=== PATIENT | female | born 1970 | race Two or more races ===

== ENCOUNTER 2021-04-09 19:22 | Emergency (ER) | payer OTHER ==
[~2021-04-09] VITALS: Ht 157.5 cm; Wt 65.8 kg
[~2021-04-09 19:22] MED LIST: MOTION SICKNESS25 M1 PO
[2021-04-09] MEDS ORDERED: KETO10TA2 PO (23:42)
== END 2021-04-10 00:03 | disposition home or self-care (01) ==
LOC: ER 19:22
DX: R10.11 Right upper quadrant pain (principal)

== ENCOUNTER 2022-08-23 14:44 | Emergency (ER) | payer OTHER ==
[~2022-08-23] VITALS: Ht 157.5 cm; Wt 68.0 kg
[~2022-08-23 14:44] MED LIST changes: +KETO10TA2 PO
== END 2022-08-23 19:55 | disposition home or self-care (01) ==
LOC: ER 14:44
DX: R42 Dizziness and giddiness (principal); K52.9 Noninfective gastroenteritis and colitis, unspecified